=== PATIENT | female | born 1990 | race Caucasian/White ===

== ENCOUNTER 2021-08-04 06:23 | Day surgery (SDC) | payer SELFPAY ==
[2021-08-03 08:35] VITALS: BMI 30.4
[2021-08-04] MEDS ORDERED: BACITRACIN 15 GM TUBE TOPICAL OINTMENT ONE (07:25)
[2021-08-04] MEDS ORDERED: EPINEPHrine/PF 1 MG/1 ML (1:1,000) AMPULE ONE (07:25)
[2021-08-04] MEDS ORDERED: LIDOCAINE HCL 1%, 10 MG/ML (20ML VIAL) ONE (07:25)
[2021-08-04] MEDS ORDERED: PROPOFOL 20 ML ONE ×7 (07:25→13:06)
[2021-08-04] MEDS ORDERED: SUCCINYLCHOLINE CHLORIDE 200 MG/10 ML SYRINGE ONE (07:25)
[2021-08-04] MEDS ORDERED: BUPIVACAINE HCL/PF 0.25% (2.5MG/ML) 10 ML VIAL ONE (07:25)
[2021-08-04] MEDS ORDERED: ROCURONIUM BROMIDE 50 MG/5 ML SYRINGE ONE (07:26)
[2021-08-04] MEDS ORDERED: BUPIVACAINE HCL/PF 2.5 MG/ML - 30 ML VIAL IJ ONE (07:26)
[2021-08-04] MEDS ORDERED: GUM MASTIC/STORAX/MSAL/ALCOHOL 1 DRP DROPSBTL MC ONE (07:26)
[2021-08-04] MEDS ORDERED: MIDAZOLAM HCL 2 MG/2 ML SINGLE DOSE VIAL ONE (08:03)
[2021-08-04] MEDS ORDERED: PROMETHAZINE HCL 25 MG/1 ML VIAL IVPUSH PRN ×2 (08:10→14:33)
[2021-08-04] MEDS ORDERED: oxyCODONE HCL 5 MG TABLET PO PRN ×3 (08:10→14:33)
[2021-08-04] MEDS ORDERED: LACTATED RINGERS SOLUTION 1,000 ML IV SCH (08:15)
[2021-08-04] MEDS ORDERED: HYDROmorphone HCL/PF 1 MG/ML VIAL ONE ×3 (08:42→11:02)
[2021-08-04] MEDS ORDERED: fentaNYL CITRATE 250 MCG/5 ML VIAL ONE (08:59)
[2021-08-04] MEDS ORDERED: ACETAMINOPHEN 500 MG TABLET (FP) ONE (11:22)
[2021-08-04] MEDS ORDERED: BACITRACIN 15 GM TUBE TOPICAL OINTMENT TP ONE (12:38)
[2021-08-04] MEDS ORDERED: BUPIVACAINE HCL/PF 0.25% (2.5MG/ML) 10 ML VIAL IJ ONE ×3 (13:12→14:18)
[2021-08-04] MEDS ORDERED: ONDANSETRON 4 MG/2 ML VIAL IVPUSH PRN (14:33)
[2021-08-04] MEDS ORDERED: ONDANSETRON 4 MG/2 ML VIAL ONE (14:45)
[2021-08-04] MEDS ORDERED: oxyCODONE HCL 5 MG TABLET ONE ×2 (16:02→16:26)
[2021-08-04 16:15] VITALS: TEMP 97.8
[2021-08-04] MEDS ORDERED: PROMETHAZINE HCL 25 MG/1 ML VIAL ONE (16:53)
[2021-08-04 18:43] VITALS: BP 140/83; PULSE 86
== END 2021-08-04 18:20 | disposition home or self-care (01) ==
LOC: FASU 06:23
PROVIDERS: ATTEND Surgery
CPT/HCPCS: 81025; 94760